=== PATIENT | female | born 1975 | race Caucasian/White ===

== ENCOUNTER → 2018-05-14 | Outpatient (CLI) | payer BC ==
[2014-01-21 22:00] VITALS: BP 137/64
[~2018-05-14] MED LIST: LEVO150T PO; OMEP20TA8 PO
--- NOTE | 2018-05-14 12:27 | RAD ---
EXAM: Right foot, 3 views. HISTORY: Pain. COMPARISON: None. FINDINGS: 3 views of the right foot are obtained. There is a healed mid distal second metatarsal fracture. No acute fracture is seen. The alignment and joint spaces are unremarkable. IMPRESSION: 1. Healed second metatarsal fracture. 2. No acute osseous finding. Electronically signed by: Jaky Markham MD (05/14/2018 12:23 PM) [facility]
== END | disposition home or self-care (01) ==
LOC: PMG 10:46
PROVIDERS: ATTEND Registered Nurse
DX: M79.671 Pain in right foot (principal)
CPT/HCPCS: 73630